=== PATIENT | male | born 1975 | race African-American/Black ===

== ENCOUNTER 2019-10-20 19:07 | Inpatient (IN) ==
[2019-10-20 19:50] LABS: Basophils % 0.2 % (0.0-0.8); Hematocrit 46.5 VOL% (42.0-52.0); Hemoglobin 14.9 GM/DL (14.0-18.0); Immature Granulocytes % 0.3 %; Immature Granulocytes Absolute 0.02 #; Lymphocytes # 1.3 10*3/uL (1.4-4.0); Mean Corpuscular Volume 81.9 FL (87-102); Mean Platelet Volume 10.8 FL (9.6-12.0); Monocytes % 7.1 % (1.7-12.7); Neutrophils % 70.4 % (38.7-73.9); Platelet Count 137 T/CUMM (130-400); Red Blood Count 5.68 MC/CUMM (3.8-5.5); Red Cell Distribution Width 13.4 % (9.3-17.3); White Blood Count 5.8 T/CUMM (4-12)
[2019-10-20 20:02] LABS: Albumin 3.7 G/DL (3.4-5.0); Bilirubin,Total 0.4 MG/DL (0.2-1.0); Calcium 8.8 MG/DL (8.5-10.1); Osmolality,Calculated 268.2 MOS/KG (273-304); Total Protein 8.5 G/DL (6.4-8.3)
[2019-10-20 20:03] LABS: Ferritin 464.9 ng/ml (26-388)
[2019-10-20 20:21] LABS: Hypochromasia 2+; Microcytosis 1+; Platelet Estimate Normal
[2019-10-20] MEDS ORDERED: ONDANSETRON 4 MG/2 ML VIAL IV STA (20:27)
[2019-10-20] MEDS ORDERED: KETOROLAC 30 MG/1 ML VIAL IV STA (20:27)
[2019-10-20] MEDS ORDERED: MORPHINE 4 MG/1 ML VIAL IV STA (20:27)
[2019-10-20] MEDS ORDERED: SODIUM CHLORIDE 0.9% 1,000 ML IV STA (20:27)
[2019-10-20 20:39] LABS: ABG Base Excess 2.1 MMOL/L (-2.5-2.5); ABG HCO3 26.2 MMOL/L (20-26); ABG PCO2 32.4 MM HG (35-48); ABG PH 7.489 (7.35-7.45); ABG PO2 97.9 MM HG (80-95); Allen Test Positive
[2019-10-20] MEDS ORDERED: AZITHROMYCIN INJ 500 MG in SODIUM CHLORIDE 0.9% 250 ML IV STA (20:52)
[2019-10-20] MEDS ORDERED: hydrALAZINE 20 MG/1 ML VIAL IV PRN (21:55)
[2019-10-20] MEDS ORDERED: diphenhydrAMINE CAP 25 MG CAPSULE PO PRN (21:55)
[2019-10-20] MEDS ORDERED: GLUCAGON 1 MG VIAL IM PRN (21:55)
[2019-10-20] MEDS ORDERED: DEXTROSE 50% 25 GM/50 ML VIAL IV PRN (21:55)
[2019-10-20] MEDS ORDERED: NICOTINE 21 MG/24 HR PATCH TRANSDERM PRN (21:55)
[2019-10-20] MEDS ORDERED: MORPHINE 4 MG/1 ML VIAL IV PRN (21:55)
[2019-10-20] MEDS ORDERED: ZALEPLON 5 MG CAPSULE PO PRN (21:55)
[2019-10-20] MEDS ORDERED: ONDANSETRON 4 MG/2 ML VIAL IV PRN (21:55)
[2019-10-20] MEDS ORDERED: DOCUSATE SODIUM 100 MG CAPSULE PO PRN (21:55)
[2019-10-20] MEDS ORDERED: guaiFENesin/DM ER 600-30 MG TABLET PO PRN (21:55)
[2019-10-20] MEDS ORDERED: AZITHROMYCIN INJ 500 MG in SODIUM CHLORIDE 0.9% 250 ML IV SCH (22:00)
[2019-10-20] MEDS: SODIUM CHLOR 0.9% KCL 20 MEQ 20 MEQ/1,000 ML BAG IV SCH (23:45)
[2019-10-21 05:02] LABS: Basophils % 0.2 % (0.0-0.8); Hematocrit 41.7 VOL% (42.0-52.0); Hemoglobin 13.4 GM/DL (14.0-18.0); Immature Granulocytes % 0.2 %; Immature Granulocytes Absolute 0.01 #; Lymphocytes # 1.7 10*3/uL (1.4-4.0); Lymphocytes % 38.8 % (21.2-54.2); Mean Corpuscular HGB Conc 32.1 GM/DL (32-36); Mean Corpuscular Volume 81.9 FL (87-102); Mean Platelet Volume 11.4 FL (9.6-12.0); Monocytes % 8.5 % (1.7-12.7); Neutrophils % 52.3 % (38.7-73.9); Platelet Count 125 T/CUMM (130-400); Red Blood Count 5.09 MC/CUMM (3.8-5.5); Red Cell Distribution Width 13.4 % (9.3-17.3); White Blood Count 4.3 T/CUMM (4-12)
[2019-10-21 05:43] LABS: Atypical Lymphocytes Few; Band Neutrophils 2 % (0-10); Hypochromasia 1+; Lymphocytes 29 % (20-55); Segmented Neutrophils 60 % (50-85); Total Cells Counted 100
[2019-10-21 05:44] LABS: Microcytosis 1+; Ovalocytes Slight; Platelet Estimate Adequate
[2019-10-21 05:48] LABS: Calcium 7.9 MG/DL (8.5-10.1); Osmolality,Calculated 270.1 MOS/KG (273-304)
[2019-10-21] MEDS: SODIUM CHLOR 0.9% KCL 20 MEQ 20 MEQ/1,000 ML BAG IV SCH ×2 (08:27→17:47)
[2019-10-21] MEDS: AZITHROMYCIN 250 MG TABLET PO SCH (08:27)
[2019-10-21] MEDS: ENOXAPARIN 40 MG/0.4 ML SYRINGE SUBCUT SCH (08:28)
[2019-10-21] MEDS ORDERED: PANTOPRAZOLE 40 MG VIAL IV SCH (09:00)
[2019-10-21] MEDS: ACETAMINOPHEN 325 MG TABLET PO PRN ×2 (12:34→20:25)
[2019-10-21] MEDS: FAMOTIDINE 20 MG TABLET PO SCH (20:25)
[2019-10-21] MEDS: CYPROHEPTADINE 4 MG TABLET PO SCH (20:25)
[2019-10-22 05:18] LABS: Basophils % 0.2 % (0.0-0.8); Hematocrit 38.5 VOL% (42.0-52.0); Hemoglobin 12.3 GM/DL (14.0-18.0); Immature Granulocytes % 0.2 %; Immature Granulocytes Absolute 0.01 #; Lymphocytes # 1.4 10*3/uL (1.4-4.0); Mean Corpuscular HGB Conc 31.9 GM/DL (32-36); Mean Corpuscular Volume 81.2 FL (87-102); Mean Platelet Volume 10.9 FL (9.6-12.0); Monocytes % 7.7 % (1.7-12.7); Neutrophils % 65.9 % (38.7-73.9); Platelet Count 168 T/CUMM (130-400); Red Blood Count 4.74 MC/CUMM (3.8-5.5); Red Cell Distribution Width 13.5 % (9.3-17.3); White Blood Count 5.4 T/CUMM (4-12)
[2019-10-22 05:43] LABS: Calcium 8.1 MG/DL (8.5-10.1); Ferritin 483.4 ng/ml (26-388); Osmolality,Calculated 276.5 MOS/KG (273-304)
[2019-10-22 06:11] LABS: Band Neutrophils 6 % (0-10); Hypochromasia 2+; Lymphocytes 27 % (20-55); Platelet Estimate Normal; Segmented Neutrophils 60 % (50-85); Total Cells Counted 100
[2019-10-22] MEDS: SODIUM CHLOR 0.9% KCL 20 MEQ 20 MEQ/1,000 ML BAG IV SCH (06:21)
[2019-10-22] MEDS: CYPROHEPTADINE 4 MG TABLET PO SCH (08:39)
[2019-10-22] MEDS: FAMOTIDINE 20 MG TABLET PO SCH (08:39)
[2019-10-22] MEDS: ENOXAPARIN 40 MG/0.4 ML SYRINGE SUBCUT SCH ×2 (08:39)
[2019-10-22] MEDS: AZITHROMYCIN 250 MG TABLET PO SCH (08:39)
[2019-10-22] MEDS ORDERED: ZINC SULFATE 220 MG CAPSULE PO SCH (09:00)
[2019-10-22 12:17] VITALS: BP 113/70
== END 2019-10-22 14:10 | disposition home or self-care (01) | DRG 177 ==
LOC: N.ED 19:07 → N.EDINP 21:55 → N.2E 22:55
PROVIDERS: ADMIT Hospitalist; ATTEND Hospitalist